=== PATIENT | male | born 1955 | race American Indian/Alaskan Native ===

== ENCOUNTER 2019-04-27 20:17 | Emergency (ER) | payer OTHER ==
[~2019-04-27] VITALS: Ht 167.6 cm; Wt 86.0 kg
[~2019-04-27 20:17] MED LIST: METHADONE
[2019-04-27] MEDS ORDERED: ACETAMINOPHEN 325MG TABLET PO ONE (21:45)
[2019-04-27] MEDS ORDERED: SODIUM CHLORIDE 0.9% 1,000 ML IV ONE (21:45)
[2019-04-27 22:59] LABS: HEMATOCRIT. 32.2 % (42.0-52.0); MEAN CORPUSCULAR HEMOGLOBIN 28.8 pg (28.0-32.0); MEAN CORPUSCULAR VOLUME 84.4 fL (80.0-94.0); MEAN PLATELET VOLUME 7.2 fl (7.4-10.4); PLATELET 236 x1000/uL (130-400); RED BLOOD CELL COUNT 3.81 mill/uL (4.7-6.1); RED CELL DISTRIBUTION WIDTH 13.9 % (11.6-14.6)
[2019-04-27 23:05] LABS: CHLORIDE 104 mEq/L (98-107)
[2019-04-28 00:04] LABS: CLARITY URINE CLEAR (CLEAR); COLOR URINE YELLOW (YELLOW); KETONES URINE NEGATIVE (NEGATIVE); LEUKOCYTE ESTERASE URINE NEGATIVE (NEGATIVE); NITRITE URINE NEGATIVE (NEGATIVE); OCCULT BLOOD URINE TRACE (NEGATIVE); PH URINE >=9.0 (4.5-8.0); PROTEIN URINE NEGATIVE (NEGATIVE); SPECIFIC GRAVITY URINE 1.019 (1.005-1.030)
[2019-04-28 00:06] LABS: PLATELET ESTIMATE NORMAL
[2019-04-28 00:17] LABS: *AMPHETAMINES SCREEN URINE NEGATIVE (NEGATIVE); *BARBITURATES SCREEN URINE NEGATIVE (NEGATIVE); *BENZODIAZEPINES SCREEN URINE NEGATIVE (NEGATIVE); *COCAINE SCREEN URINE NEGATIVE (NEGATIVE)
[2019-04-28 00:18] LABS: CANNABINOID URINE SCREEN NEGATIVE (NEGATIVE); METHADONE URINE SCREEN PRESUMTIVE POSITIVE (NEGATIVE); OPIATES URINE SCREEN PRESUMTIVE POSITIVE (NEGATIVE); PHENCYCLIDINE URINE SCREEN NEGATIVE (NEGATIVE)
[2019-04-28 00:39] VITALS: BP 119/59
== END 2019-04-28 00:54 | disposition home or self-care (01) ==
LOC: ER 20:17
DX: R50.9 Fever, unspecified (principal); F11.10 Opioid abuse, uncomplicated
CPT/HCPCS: 36415; 71045; 80053; 80305; 81003; 83605; 84443; 84484; 85025; 93005; 99284; J7030

== ENCOUNTER 2022-08-11 17:27 | Emergency (ER) | payer OTHER ==
[~2022-08-11] VITALS: Ht 167.6 cm; Wt 85.0 kg
[2022-08-11 17:36] VITALS: BP 134/68
== END 2022-08-11 18:53 | disposition left against medical advice (07) ==
LOC: ER 17:27
DX: S01.81XA Laceration without foreign body of other part of head, initial encounter (principal); W18.39XA Other fall on same level, initial encounter; Y93.89 Activity, other specified; Y92.89 Other specified places as the place of occurrence of the external cause; Y99.8 Other external cause status; M79.601 Pain in right arm
CPT/HCPCS: 99283